=== PATIENT | male | born 1950 | race Caucasian/White ===

== ENCOUNTER 2016-08-11 08:46 | Outpatient (CLI) | payer MEDICARE ==
--- NOTE | 2016-08-11 20:44 | ULT ---
ABDOMINAL AORTA ULTRASOUND 08/11/16 Ultrasonography of the abdominal aorta was performed. There is no evidence of an aortic aneurysm. Th e AP and transverse diameters of the aorta proximally were measured at 1.9 x 1.9 cm. Mid aorta was 1 .3 x 1.8 cm. Distal aorta was 1.4 x 1.6 cm. Both iliac arteries are visualized. IMPRESSION: No evidence of aortic aneurysm. POS: HOME
== END 2016-08-11 08:47 | disposition home or self-care (01) ==
LOC: BURULT 08:46
PROVIDERS: ATTEND Family Medicine
DX: Z13.6 Encounter for screening for cardiovascular disorders (principal)
CPT/HCPCS: 76775

== ENCOUNTER 2019-07-25 09:43 | Outpatient (CLI) | payer MEDICARE ==
--- NOTE | 2019-07-25 19:37 | RAD ---
CHEST TWO VIEWS: 07/25/19 Comparison is made with a 07/22/2019 study. The haziness in the left base has resolved. The lungs are now clear. There is no significant residua l. No effusions are present. The heart size is normal. There is a questionable subcentimeter density partially obscured by the left 9th posterior rib. I would merely consider doing another chest x-ray t o look at this area in three to six months to be sure there are no changes going on here. The mediast inum appears normal and the trachea is midline. IMPRESSION: 1. Pneumonia resolved. 2. Equivocal subcentimeter density in the left lower chest, partially obscured by a rib. This is probably not significant, but out of an abundance of caution, a follow-up chest x-ray in three to si x months would be prudent. Code T POS: HOME
== END 2019-07-25 09:44 | disposition home or self-care (01) ==
LOC: BURRAD 09:43
PROVIDERS: ATTEND Nurse Practitioner
DX: J18.9 Pneumonia, unspecified organism (principal); R91.8 Other nonspecific abnormal finding of lung field
CPT/HCPCS: 71046